=== PATIENT | male | born 1960 | race Caucasian/White ===

== ENCOUNTER → 2019-07-05 | Outpatient (CLI) | payer OTHER ==
[~2019-07-05] MED LIST: HOLD METFORMIN - RECEIVED CONTRAST 20 ML VIAL IV SCH; IOHEXOL 350 MG/ML 100 ML (OMNIPAQUE 350) VIAL IV ONE; NS 100 ML (IVPB) BAG IV ONE; RT-ALBUTEROL SULF 2.5 MG/3 ML PRE-MIX VIAL INH ONE
[2019-07-05 09:48] LABS: ABG BASE EXCESS 2.2 MMOL/L (-2.5-2.5); ABG OXYGEN SATURATION 97 % (94-100); ABG PCO2 41 MMHG (35-45); ABG PH 7.42 (7.37-7.43); ABG PO2 78 MMHG (79-93); ALLENS TEST POSITIVE
[2019-07-05 09:49] LABS: PATIENT TEMP 35.3; VENTILATOR NO
[2019-07-05 09:51] LABS: BUN/CREATININE RATIO 18; CREATININE SERUM 0.96 MG/DL (0.60-1.30); GFR ESTIMATED > 60
--- NOTE | 2019-07-05 11:45 | Diagnostic Imaging Report ---
EXAMINATION: CT Chest with intravenous contrast. TECHNIQUE: Multiple contiguous axial images were obtained through the chest after the uneventful administration of intravenous contrast. All CT scans use one or more of the following dose optimizing techniques: automated exposure control, MA and/or KvP adjustment based on a patient size and exam type, or iterative reconstruction. INDICATION: DYSPNEA. COMPARISON: None available. FINDINGS: There is no edema or pneumonia. No pleural effusion. No pneumothorax. There is a 3 mm nodule in the lingula. Heart size is normal. There are mild coronary artery calcifications. No pericardial effusion. Aorta is normal in caliber. There is no axillary or supraclavicular lymphadenopathy. There is no mediastinal lymphadenopathy. Limited views of the upper abdomen show small liver cysts. There are no suspicious osseus lesions. IMPRESSION: 1. Lingular nodule measuring 3mm. According to the Fleischner Society guidelines: In a low risk patient, no routine follow up is recommended. In a high risk patient, consider optional CT at 12 months. Dictated by: Dictated on workstation # [id number]
== END ==
LOC: RT 09:07
PROVIDERS: ATTEND Nurse Practitioner Family
DX: J45.909 Unspecified asthma, uncomplicated (principal); J18.8 Other pneumonia, unspecified organism; R91.1 Solitary pulmonary nodule; Z87.891 Personal history of nicotine dependence
CPT/HCPCS: 36415; 36600; 71260; 82565; 82805; 84520; 94060; 94726; 94729

== ENCOUNTER → 2020-10-04 | Outpatient (CLI) | payer OTHER ==
[2020-10-04 15:11] LABS: BUN/CREATININE RATIO 17; CREATININE SERUM 1.03 MG/DL (0.60-1.30); GFR ESTIMATED > 60
--- NOTE | 2020-10-04 18:10 | Diagnostic Imaging Report ---
PROCEDURE: CT chest with contrast only. TECHNIQUE: Multiple contiguous axial images were obtained through the chest after administration of intravenous contrast. Auto Exposure Controls were utilized during the CT exam to meet ALARA standards for radiation dose reduction. INDICATION: COPD follow-up. COMPARISON: 07/05/2019 FINDINGS: The heart is normal in size. 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 The ascending aorta is mildly ectatic measuring 3.9 cm in diameter. There is no dissection seen. There is no pericardial effusion. No mediastinal adenopathy is seen. There is no axillary adenopathy. There is no pleural effusion or pneumothorax seen. There is mild motion artifact. There is a fissural lymph node along the left major fissure anteriorly. There is no enlargement of the previously described 3 mm lingular nodule. No new nodules are seen. No central endobronchial lesions are seen. No acute osseous abnormality is seen. There are degenerative changes throughout the spine. Imaged portions of the upper abdomen demonstrate no acute abnormality. Cholecystectomy clips are noted. Small hypodensities in the liver appear stable, most likely cysts. IMPRESSION: 1. No enlargement of the previously described 3 mm nodule in the lingula. No further follow-up is indicated. 2. Mildly ectatic ascending aorta. Duplicated SVC. Dictated by: Dictated on workstation # [id number]
== END ==
LOC: RAD 14:25
PROVIDERS: ATTEND Nurse Practitioner Family
DX: J44.9 Chronic obstructive pulmonary disease, unspecified (principal); R91.1 Solitary pulmonary nodule
CPT/HCPCS: 36415; 71260; 82565; 84520